=== PATIENT | male | born 1980 | race Caucasian/White ===

== ENCOUNTER 2019-07-10 11:58 | Emergency (ER) | payer OTHER ==
[~2019-07-10] VITALS: Ht 185.4 cm; Wt 110.5 kg
[2019-07-10 12:03] VITALS: BP 142/95; PULSE 80; TEMP 99
== END 2019-07-10 13:00 | disposition home or self-care (01) ==
LOC: COL.ER 11:58
DX: S00.93XA Contusion of unspecified part of head, initial encounter (principal); W22.09XA Striking against other stationary object, initial encounter; Y92.009 Unspecified place in unspecified non-institutional (private) residence as the place of occurrence of the external cause